=== PATIENT | female | born 1935 | race Caucasian/White ===

== ENCOUNTER 2016-08-11 10:45 | Outpatient (CLI) ==
--- NOTE | 2016-08-11 11:42 | DI ---
EXAM: Right foot three views HISTORY: Right foot pain COMPARISON: None FINDINGS: No fracture or dislocation. Mild scattered osteoarthritis of the interphalangeal joints. Small plantar calcaneal spur. No focal soft tissue abnormality. IMPERSSION: 1. No fracture or dislocation. 2. Mild osteoarthritis. 3. Small plantar calcaneal spur.
== END 2016-08-11 10:46 | disposition home or self-care (01) ==
LOC: RAD 10:45
PROVIDERS: ATTEND Internal Medicine
DX: M79.671 Pain in right foot (principal)

== ENCOUNTER 2017-02-11 13:36 | Emergency (ER) ==
[2017-02-11 13:41] VITALS: BP 135/70; TEMP 100.1; BMI 22.3
--- NOTE | 2017-02-11 14:21 | ED.PDOC ---
General ED Provider: Dr. YOLA BALTAZAR JR Chief Complaint: Knee Pain/Injury Stated Complaint: carrying monday off balance twisted left knee, still having pain one week [End]100.1 76 20 96 135/70 510 Time Seen by Physician: 14:19 Mode of Arrival: Walk-In Information Source: Patient Exam Limitations: No limitations Primary Care Provider: HI MILNER Nursing and Triage Documentation Reviewed and Agree: No Review of Systems - Review Of Systems Constitutional: Reports: No symptoms Eyes: Reports: No symptoms Ears, Nose, Mouth, Throat: Reports: No symptoms Respiratory: Reports: No symptoms Cardiac: Reports: No symptoms GI: Reports: No symptoms : Reports: No symptoms Musculoskeletal: Reports: Joint pain (left knee pain lateral side with tenderness painon weight bearing) Skin: Reports: No symptoms Neurological: Reports: No symptoms Endocrine: Reports: No symptoms Hematologic/Lymphatic: Reports: No symptoms All Other Systems: Other Past Medical History - Past Medical History Endocrine: Reports: Hypothyroid Cardiovascular: Reports: None Respiratory: Reports: None Hematological: Reports: None Gastrointestinal: Reports: PUD (ulcer in past), Other (miealax) Genitourinary: Reports: None Neuro/Psych: Reports: Other (xanax) Musculoskeletal: Reports: Arthritis Cancer: Reports: None Last Menstrual Period: none - Surgical History General Surgical History: Reports: Orthopedic (shoulder) - Family History Family History: Reports: Unknown - Social History Smoking Status: Never smoker Hx Substance Use: No Alcohol Screening: None Physical Exam - Physical Exam Appearance: Well-appearing, Thin Pain Distress: Moderate Musculoskeletal: Normal strength, ROM intact, No edema, No calf tenderness ( slight tenderness lower extremity veins left >right no calf tenderness no edema) Skin: Warm, Dry, Normal color Neurological: Sensation intact, Motor intact, Reflexes intact, Cranial nerves intact, Alert, Oriented Psychiatric: Affect appropriate, Mood appropriate Re-Evaluation - Re-Evaluation Time of Re-Evaluation: 14:32 Status: Unchanged (patient states she has had calf pain is concerned about a blood clot note no tenderness no edema requests testing) Critical Care Note - Critical Care Note Total Time (mins): 0 Course - Course Orders, Labs, Meds: Lab Review 02/11/17 14:45 D-Dimer (Manual) 441.24 Orders Category Date Time Status WIL [ED WIL WRAP] .ONCE EMERGENCY 02/11/17 14:24 Active D-DIMER Stat LAB 02/11/17 14:45 Completed KNEE, LEFT 4 VIEWS Stat RADS 02/11/17 14:03 Completed Vital Signs: Temp Pulse Resp BP Pulse Ox 02/11/17 13:36 100.1 F H 76 20 135/70 96 Departure - Departure Time of Disposition: 14:24 Disposition: HOME SELF-CARE Discharge Problem: Lateral collateral ligament sprain of knee Qualifiers: Encounter type: initial encounter Laterality: left Qualifier Code: (S83.422A) Sprain of lateral collateral ligament of left knee, initial encounter Instructions: Knee Sprain (ED) Condition: Good Pt referred to PMD for follow-up: Yes Additional Instructions: walk short distances for three days wil wrap for comfort for two to three hours once or twice a day [place] for liu not controlled by tylenol return if worse recheck PMD this week blood test is negative for clots Prescriptions: Hydrocodone Bit/Acetaminophen [[place] 5-325] 1 - 2 tab PO Q6HR PRN #12 tablet PRN Reason: pain Allergies/Adverse Reactions: Allergies moxifloxacin [From Avelox] Adverse Reaction (Verified 02/11/17 13:40) Home Medications: Ambulatory Orders Alprazolam [Xanax] 0.5 mg PO DAILY 02/11/17 Hydrocodone Bit/Acetaminophen [[place] 5-325] 1 - 2 tab PO Q6HR PRN #12 tablet 03/23 Levothyroxine Sodium [Synthroid] 75 mcg PO QDAC 02/11/17 Polyethylene Glycol 3350 [Miralax] 17 gm PO DAILY 02/11/17
--- NOTE | 2017-02-11 14:22 | DI ---
EXAM: Four views of the left knee. History: Left knee pain and trauma. Findings: No acute fracture or dislocation. No abnormal calcifications or radiopaque foreign eusebio s. Joint spaces are preserved. Impression: No acute osseous abnormality.
== END 2017-02-11 15:41 | disposition home or self-care (01) ==
LOC: ED 13:36
DX: S83.422A Sprain of lateral collateral ligament of left knee, initial encounter (principal); Z79.899 Other long term (current) drug therapy
CPT/HCPCS: 36415; 85379; 99282

== ENCOUNTER 2017-02-15 14:07 | Outpatient (CLI) ==
--- NOTE | 2017-02-15 14:50 | US ---
Exam: Anna-scale and color Doppler ultrasonographic evaluation of the right and left lower extremit y venous structures. Comparison: None available. Reason for exam: Pain. FINDINGS: There is spontaneous flow with adequate compression and respiratory augmentation seen in both the left and right common femoral, greater saphenous, profunda, superficial femoral, popliteal, peroneal, posterior tibial, and anterior tibial veins. Impression: No ultrasonographic evidence of deep venous thrombus is seen in either the right or left lower extre mity.
== END 2017-02-15 14:08 | disposition home or self-care (01) ==
LOC: RAD 14:07
PROVIDERS: ATTEND Internal Medicine
DX: M79.605 Pain in left leg (principal); M79.604 Pain in right leg; W19.XXXA Unspecified fall, initial encounter

== ENCOUNTER 2018-06-12 07:52 | Outpatient (CLI) ==
--- NOTE | 2018-06-12 09:03 | DI ---
EXAM: Two views of the chest. History: Chest pain and right-sided rib pain. Comparison: Chest radiograph 07/28/2014 Findings: Heart size is normal. No focal consolidation. No appreciable pleural fluid and no pneumo thorax. Atherosclerotic vascular calcifications. Calcified granulomas again seen within the thorax. No acute osseous abnormalities. Impression: No acute cardiopulmonary process. Old granulomatous disease. No change compared to the prior study
--- NOTE | 2018-06-12 09:04 | DI ---
EXAM: Four views of the right ribs. History: Right rib trauma. Comparison: Chest radiograph 06/12/2018 Findings: Atherosclerotic vascular calcifications. Right lung is free of consolidation. Calcified granulomas seen within the thorax. No right pleural effusion and no right-sided pneumothorax. No acu te displaced right-sided rib fractures. Impression: No acute findings
--- NOTE | 2018-06-12 09:15 | CT ---
EXAM: CT of the abdomen with contrast History: Right-sided abdominal pain and trauma. Technique: Multiplanar CT images through the abdomen were obtained following administration of IV co ntrast Findings: Subsegmental atelectasis seen within the lower lungs. Calcified granuloma within the ling man. No acute osseous abnormalities. No discrete gallstones identified by CT. Calcified granulomas within the spleen. No focal liver les ions. Pancreas is unremarkable. Adrenal glands are within normal limits. No renal masses. No hydr onephrosis. No perinephric stranding. No dilated loops of bowel. Scattered colonic stool. The rafal endix is not visualized. There are no secondary signs of appendicitis. No free air and no ascites. Tiny fat containing umbilical hernia. No pathologically enlarged lymph nodes. Impression: No acute intra-abdominal process.
== END 2018-06-12 07:53 | disposition home or self-care (01) ==
LOC: RAD 07:52
PROVIDERS: ATTEND Internal Medicine
DX: R07.89 Other chest pain (principal); R10.9 Unspecified abdominal pain; W19.XXXA Unspecified fall, initial encounter
CPT/HCPCS: 36415; 82565

== ENCOUNTER 2018-09-19 11:11 | Inpatient (IN) ==
[2018-09-19] MEDS ORDERED: ATROPINE SULFATE PFS IVP PRN (11:40)
[2018-09-19] MEDS ORDERED: TYLENOL PO PRN (11:40)
[2018-09-19] MEDS ORDERED: NITROSTAT SL PRN (11:40)
[2018-09-19] MEDS ORDERED: VISTARIL INJ IM PRN (11:40)
[2018-09-19] MEDS ORDERED: LANOXIN PO STA (11:46)
[2018-09-19] MEDS ORDERED: LOVENOX SUBCUT STA (11:47)
[2018-09-19 11:52] VITALS: BMI 24.2
[2018-09-19] MEDS ORDERED: CARDIZEM PO SCH ×2 (12:00→13:00)
[2018-09-19] MEDS ORDERED: CARDIZEM ONE (13:33)
[2018-09-19] MEDS: CORDARONE PO SCH (13:37)
--- NOTE | 2018-09-19 13:38 | DI ---
EXAM: CHEST FRONTAL VIEW HISTORY: Shortness of breath. COMPARISON: 06/22/2018 FINDINGS: Heart size remains within normal limits. There is at least mild atherosclerotic disease. There are scattered calcifications suggesting old granulomatous disease. No acute infiltrates are s een. No vascular congestion. There is no consolidation, visible pleural fluid or pneumothorax. Bon es reveal no acute fracture. IMPRESSION: No acute cardiopulmonary process.
[2018-09-20] MEDS: CORDARONE PO SCH ×3 (00:08→21:23)
[2018-09-20] MEDS: CARDIZEM PO SCH ×2 (00:08→09:00)
[2018-09-20] MEDS: SYNTHROID PO SCH (05:58)
[2018-09-20] MEDS: MILK OF MAGNESIA PO PRN (09:00)
[2018-09-20] MEDS: ASPIRIN EC PO SCH (09:00)
[2018-09-20] MEDS: MIRALAX PO SCH (09:01)
[2018-09-20] MEDS: LOVENOX SUBCUT SCH (09:02)
[2018-09-21 05:25] VITALS: BP 105/59; TEMP 97.6
[2018-09-21] MEDS: SYNTHROID PO SCH (05:58)
[2018-09-21] MEDS: CORDARONE PO SCH (08:37)
[2018-09-21] MEDS: ASPIRIN EC PO SCH (08:37)
[2018-09-21] MEDS: MIRALAX PO SCH (08:38)
[2018-09-21] MEDS: LOVENOX SUBCUT SCH (08:38)
--- NOTE | 2018-09-21 08:41 | PCM.PROG ---
Attending Provider: ATTENDING PROVIDER: Dr. HI MILNER DATE OF SERVICE: 09/21/18 SUBJECTIVE: This 83 year old WHITE/ F was hospitalized 09/19/18. The patient was hospitalized with near syncope type of symptoms and atrial fibrillation with rapid ventricular response. After a couple of hours after hospitalization the patient converted into sinus rhythm and stayed in sinus rhythm ever since. She has been on Amiodarone and baby Aspirin along with Xanax as needed. REVIEW OF SYSTEMS: CONSTITUTIONAL: No night sweats. No fatigue, malaise, lethargy. No fever or chills. HEENT: Eyes: No visual changes. No eye pain. No eye discharge. ENT: No runny nose. No epistaxis. No sinus pain. No odynophagia. No congestion. RESPIRATORY: No cough, no congestion. No hemoptysis. No shortness of breath. CARDIOVASCULAR: No angina symptoms. No CHF symptoms. No atypical chest pain for CAD. No palpitations. No orthopnea.. GASTROINTESTINAL: No abdominal pain. No nausea or vomiting. No diarrhea or constipation. No hematemesis. No hematochezia. GENITOURINARY: No urgency. No frequency. No dysuria. No hematuria. No obstructive symptoms. No discharge. No pain. No significant abnormal bleeding. MUSCULOSKELETAL: No musculoskeletal pain; no joint swelling. NEUROLOGICAL: Awake, alert, oriented to time, place and person. No headache. No neck pain. No syncope. No seizures. No dizziness. PSYCHIATRIC: Not anxious. No depression. No suicidal thoughts. No homicidal thoughts. SKIN: No rash. No lesions. No wounds. ENDOCRINE: No unexplained weight loss. No weight gain. HEMATOLOGIC/LYMPHATIC: No anemia. No purpura. No petechiae. No prolonged or excessive bleeding. No palpable lymph nodes. PHYSICAL EXAMINATION: GENERAL: The patient is awake, alert and oriented, lying in bed in no distress. VITAL SIGNS: Temperature 97.6 F, Pulse 58, Respiratory Rate 16, BP 105/59, Pulse Ox 96% HEENT: Head normocephalic, atraumatic. Eyes: Extraocular muscles are intact. Pupils are equal, round and reactive to light and accommodation. Ears: No lesions. Nose appeared normal. Throat: No exudate or erythema. NECK: Supple. No JVD, no carotid bruit. No lymphadenopathy or thyromegaly. LUNGS: Clear to auscultation. Percussion note normal. Chest symmetrical. HEART: S1, S2, no S3. No murmurs. No cyanosis or clubbing. No ascites. Pulses: Dorsalis pedis and posterior tibial pulses +1 to +2 both sides. ABDOMEN: Soft. Non-tender. Bowel sounds active. No CVA tenderness. No mass felt. EXTREMITIES: No edema. Full range of motion of all extremities, equal. NEUROLOGIC: No focal deficit. Cranial nerves II through XII are grossly intact. No headache, no double vision or headache. SKIN: Warm and dry. Intact. Turgor-normal. LYMPHATIC: No palpable lymph nodes/no lymphedema. MUSCULOSKELETAL: Normal joints with no swelling. Muscle tone is normal. LAB REVIEW: 09/21/18 05:05 09/21/18 05:05 09/21/18 05:05: Sodium 140.3, Potassium 4.25, Chloride 106.4, Carbon Dioxide 26.8, Anion Gap 11.35, BUN 17.1 H, Creatinine 0.72, Estimated GFR (MDRD) 77.00, BUN/Creatinine Ratio 23.75, Glucose 93.9, Calcium 8.74, Total Bilirubin 0.68, AST 16.1, ALT 13.5, Alkaline Phosphatase 50.1 L, Total Protein 6.49, Albumin 3.52, Globulin 2.97, Albumin/Globulin Ratio 1.18 09/21/18 05:05: WBC 5.62, RBC 4.02 L, Hgb 12.7, Hct 38.8, MCV 96.5, MCH 31.6 H, MCHC 32.7, RDW Coeff of Jonel 13.0, Plt Count 245, Immature Gran % (Auto) 0.2, Neut % (Auto) 54.1, Lymph % (Auto) 30.2, [place] % (Auto) 12.3 H, Eos % (Auto) 2.8 , Baso % (Auto) 0.4, Immature Gran # (Auto) 0.0, Neut # (Auto) 3.0, Lymph # ( Auto) 1.7, [place] # (Auto) 0.7, Eos # (Auto) 0.2, Baso # (Auto) 0.0 ASSESSMENT: Please see below. 1. Paroxysmal atrial fibrillation, resolved on admission. The patient is already on Holter Monitor. Depending on the results we may start the patient on Eliquis. PLAN: 1. Non valvular atrial fibrillation paroxysmal with left atrial size 3.9cm. 2. Cardiac status is stable. 3. CHADS II Vasc score is 2, the score is 2 because of her age, no risk factors for stroke. 4. She is to be seen on Monday or Monday for followup. Plan and coordination of the patient's care discussed in the presence of Aboriginal Liaison Officer and nurse. CONDITION: Stable. SCRIBED BY: Michelet MENDEZ scribed while in presence of service performed by Dr. HI MILNER on 09/21/18 ([id number])
[2018-09-21] MEDS: MILK OF MAGNESIA PO PRN (08:43)
--- NOTE | 2018-09-21 08:43 | DS ---
DATE OF SERVICE: 09/21/18 FINAL DIAGNOSIS: 1. Paroxysmal Atrial fibrillation with RVR 2. Near Syncope 3. COPD 4. Generalized anxiety disorder 5. Restless leg syndrome 6. Hypothyroidism 7. Hyperglycemia 8. Neuropathy 9. Dyslipidemia LAST VITALS: Temperature 97.6, pulse 58, respiratory rate 16, blood pressure 105/59 and pulse ox 96%. DISCHARGE INSTRUCTIONS: Discharge home. Continue medications as listed on Nursing discharge information sheet. An appointment is scheduled with Dr. Tsang/Fernanda Singh APRN on September 26 at 11:45. MEDICATIONS AT DISCHARGE: Cordarone 100mg PO Q 12 hours DIO Aspirin 81mg PO daily Synthroid 75mcg PO QDAC Milk of Magnesia 30ml PO daily PRN Miralax 17 gram PO daily Xanax 0.5mg PO daily PRN ALLERGIES: Moxifloxacin NEW PRESCRIPTIONS: Xanax 0.5mg PO daily PRN (refill RX) Amiodarone 100mg PO twice a day Baby Aspirin 81mg PO daily (over the counter) DIET INSTRUCTIONS: Regular as tolerated ACTIVITY: Resume as tolerated. SMOKING: Not applicable DISEASE SPECIFIC EDUCATION: Atrial fibrillation, Paroxysmal Prescription HOSPITAL COURSE: 83 year old white female hospitalized through the office with near syncope episode and shortness of breath. She had atrial fibrillation that was documented in the office with a ventricular rate of 120-130. The patient converted to sinus rhythm within a couple of hours of admission. Echo showed normal contractility, cavity size is normal,mitral, tricuspid and aortic valves appear to be normal. No mitral valve prolapse. WATSON 2 VASC score was 2 coming from her age of 83. She doesn't have diabetes mellitus, non smoker, normal blood pressure and no history of CVA. The patient will be followed as an outpatient. Any indication of atrial fibrillation we will consider Novel blood thinners like Eliquis. After discussion with the patient it was decided not to start on the blood thinners because the complications outweigh the benefit because the atrial fibrillation seems to be infrequent and paroxysmal. TIME SPENT: More than 60 minutes. [facility]
--- NOTE | 2018-09-21 08:44 | PN ---
09/19/18: Level 5 09/20/18: Intermediate 09/21/18: D as in discharge MTDD
--- NOTE | 2018-09-21 10:00 | CM.DICTOOL ---
ADMISSION: 09/19/18 11:11 DISCHARGE: 2018 DATE OF SERVICE: 09/21/18 FINAL DIAGNOSIS PAROXYSMAL ATRIAL FIB WITH RVR NEAR SYNCOPE COPD GENERALIZED ANXIETY DISORDER RESTLESS LEG SYNDROME HYPOTHYROIDISM HYPERGLYCEMIA NEUROPATHY DYSLIPIDEMIA CATARACT REMOVAL, LAST VITALS Temp Pulse Resp BP Pulse Ox 97.6 F 58 L 16 105/59 L 96 09/21/18 05:24 09/21/18 05:24 09/21/18 05:24 09/21/18 05:24 09/21/18 05:24 TAKE THESE MEDICATIONS AT HOME Amiodarone HCl (Cordarone) 100 mg PO Q12HR [facility] Last Admin: 09/21/18 08:37 Dose: 100 mg Aspirin (Aspirin Ec) 81 mg PO DAILYWM [facility] Last Admin: 09/21/18 08:37 Dose: 81 mg Levothyroxine Sodium (Synthroid) 75 mcg PO QDAC [facility] Last Admin: 09/21/18 05:58 Dose: 75 mcg Magnesium Hydroxide (Milk Of Magnesia) 30 ml PO DAILY PRN PRN Reason: Constipation Last Admin: 09/21/18 08:43 Dose: 30 ml Polyethylene Glycol (Miralax) 17 gm PO DAILY [facility] Last Admin: 09/21/18 08:38 Dose: 17 gm Alpraxolam (Xanac) 0.5 mg PO DAILY PRN ALLERGIES moxifloxacin [From Avelox] Adverse Reaction (Verified 02/11/17 13:40) DISCONTINUED MEDICATIONS NONE NEW PRESCRIPTIONS: XANAX 0.5 MG DAILY PRN (REFILL RX) AMIODARONE 100 MG BID BABY ASA 81 MG DAILY (OVER THE COUNTER) SMOKING: NOT APPLICABLE DISEASE SPECIFIC EDUCATION: ATRIAL FIBRILLATION, PAROXYSMAL PRESCRIPTION LAB REVIEW: 09/21/18 05:05 09/21/18 05:05 09/21/18 05:05: Sodium 140.3, Potassium 4.25, Chloride 106.4, Carbon Dioxide 26.8, Anion Gap 11.35, BUN 17.1 H, Creatinine 0.72, Estimated GFR (MDRD) 77.00, BUN/Creatinine Ratio 23.75, Glucose 93.9, Calcium 8.74, Total Bilirubin 0.68, AST 16.1, ALT 13.5, Alkaline Phosphatase 50.1 L, Total Protein 6.49, Albumin 3.52, Globulin 2.97, Albumin/Globulin Ratio 1.18 09/21/18 05:05: WBC 5.62, RBC 4.02 L, Hgb 12.7, Hct 38.8, MCV 96.5, MCH 31.6 H, MCHC 32.7, RDW Coeff of Jonel 13.0, Plt Count 245, Immature Gran % (Auto) 0.2, Neut % (Auto) 54.1, Lymph % (Auto) 30.2, [place] % (Auto) 12.3 H, Eos % (Auto) 2.8 , Baso % (Auto) 0.4, Immature Gran # (Auto) 0.0, Neut # (Auto) 3.0, Lymph # ( Auto) 1.7, [place] # (Auto) 0.7, Eos # (Auto) 0.2, Baso # (Auto) 0.0 PLAN: DISCHARGE HOME DIET: REGULAR TOLERATED ACTIVITY: RESUME TOLERATED CONTINUE MEDICATIONS LISTED ON NURSING DISCHARGE INFORMATION SHEET PRESCRIPTIONS CALLED TO [facility] IN [place], [place] AT REQUEST OF PATIENT AN APPOINTMENT IS SCHEDULED WITH DR. MILNER/SILVIANO HASSAN APRN ON AT 11:45 AM CODE STATUS: FULL CODE MS. NOYOLA IS ALERT AND ORIENTED X 3. SHE IS INDEPENDENT WITH ALL ACTIVITIES OF DAILY LIVING. SHE IS AMBULATORY IN THE ROOM WITHOUT STAFF ASSISTANCE OR USE OF ASSISTIVE DEVICE. APPETITE IS GOOD WITH INTAKES OF 10-100%. MS. NOYOLA IS CONTINENT OF BOWEL AND BLADDER. MS. NOYOLA LIVES ALONE AND DOES NOT USE ANY TYPE OF DURABLE MEDICAL EQUIPMENT. MS. NOYOLA IS AWARE OF DISCHARGE PLANS AND NEW MEDICATION. SHE IS AGREEABLE. SKIN TURGOR IS GOOD, SKIN IS INTACT AND FREE OF OPEN WOUNDS, IRRITATIONS. HI MILNER MD
--- NOTE | 2018-09-21 10:03 | US ---
EXAM: Bilateral carotid artery Doppler History: Syncope. Technique: Multiple sonographic images through the bilateral internal carotid arteries were obtained . Color duplex Doppler was used to interrogate vascular flow. Findings: The right ICA peak systolic velocity is within normal limits measuring 111 cm/sec. The right ICA/cca PSV ratio is normal at 1.2. The right vertebral artery is patent and demonstrates antegrade flow. Anna scale images demonstrate mild plaque buildup within the right internal carotid artery. The left ICA peak systolic velocities within normal limits measuring 88 cm/sec. The left ICA/cca PSV ratio is normal at 1.1. The left vertebral artery is patent and demonstrates antegrade flow. Anna scale images demonstrate mild plaque buildup within the left internal carotid artery. Impression: No significant hemodynamic stenosis of the bilateral internal carotid arteries
--- NOTE | 2018-09-24 09:30 | ECHO2D ---
Date of Exam: 09/20/18 Ordering Physician: DR. HI MILNER Room #: 122 Reason for Echo: SOA/ ATRIAL FIBRILLATION PAROXYSMAL M-Mode Normal Adult Results LV Dimensions Normal Adult Results AoV Opening excursions >1.6 >1.6 LVEDD-base- 3.5-5.8 4.0 Ao root dimensions 2.0-3.7 2.8 LVESD-base- 3.1-4.6 L. Atrium dimensions 1.9-3.8 3.9 Post. Wall thickness 0.8-1.1 1.0 IV septum (thickness) 0.7-1.2 1.0 Post. Wall excursion 0.72-1.3 NORMAL Septal motion NORMAL Systolic motion R. Ventricular cavity 1.5-2.0 NORMAL LVEF 60% 60% Paradoxical septal wall motion NORMAL 2-D : 2-D M Mode Echocardiogram was performed using apical four chamber and left parasternal long and short axis views. Mitral, tricuspid and aortic valves appear to be normal. Contractility of the left ventricle seems to be normal, so is the cavity size. Left atrial cavity size and aortic root appear to be normal. There is no pericardial effusion. There is no thrombus noted in the left ventricular or left aortic cavity. No mitral valve prolapse noted. M-MODE: MV: NORMAL AV: NORMAL TV: NORMAL PV: CHAMBER SIZE: NORMAL WALL MOTION: NORMAL PERICARDIUM: NORMAL INTERPRETATION: 1. NORMAL 2 "D" "M" MODE ECHO MTDD
--- NOTE | 2018-09-24 10:43 | HOLTER ---
PATIENT INFORMATION AND COMMENTS Attending Physician: DR. HI MILNER Indications: ATRIAL FIBRILLATION WITH RVR, NEAR SYNCOPE __ Patient Medications: TYLENOL, CORDARONE, ASA, ATROPINE, CARDIZEM, LOVENOX, VISTARIL, SYNTHROID, NITROSTAT, MIRALAX __ Pre-procedure Summary: Protocol: Standard Heart Rate Started: 09/20/18 0957 Minimum: 51 BPM Weight: 132 LBS Ended: 09/21/18 0900 Maximum: 108 BPM Height: 62" Duration: 24 HOURS Average: 64 BPM _ INTERPRETATIONS/OBSERVATIONS: 1. BASIC RHYTHM: SINUS, RATE 50 BPM TO 100 BPM, AVERAGE 65 BPM 2. RARE PAC'S AND PVC'S 3. NO ST-T WAVE CHANGES FROM BASELINE 4. ACTIVITY LOG: NOT MAINTAINED MTDD
--- NOTE | 2018-09-25 07:41 | HP ---
DATE OF SERVICE: 09/19/18 REASON FOR HOSPITALIZATION/HISTORY OF PRESENT ILLNESS: Went to ER on Monday- dizzy felt like she is was going to pass out. Ranger bad. Blood pressure 200/110. Bowel sounds were ok. EKG today here showed atrial fibrillation with rapid ventricular response. No symptoms of CHF/CAD. PAST MEDICAL HISTORY: Restless leg syndrome COPD DAVID Osteoporosis Osteoarthritis Hypothyroidism Hyperglycemia Neuropathy Dyslipidemia PAST SURGICAL HISTORY: Right shoulder surgery REVIEW OF SYSTEMS: CONSTITUTIONAL: No fever, Fatigue. HEENT: No sinus drainage, no sore throat. RESPIRATORY: No cough, no congestion. CARDIOVASCULAR: No atypical chest pain for coronary artery disease. No angina , CHF symptoms. Palpitations.Shortness of breath. GASTROINTESTINAL: No melena or abdominal pain. No GERD. GENITOURINARY: No hematuria, no prostatism, no polyuria. BAKER: No blackout, Dizziness, no headache, no double vision. MUSCULOSKELETAL: Osteoarthritis pain, no joint swelling. ENDOCRINE: No weight loss, no weight gain. SKIN: Not dry, no rash. PSYCHIATRIC: Anxious, no depression, no suicidal thoughts, no homicidal thoughts. SOCIAL HISTORY: Marital Status: . Alcohol Usage: Yes. Tobacco Usage: No. FAMILY HISTORY: Father age 64, blood clot Mother age 91,congestive heart failure Brothers 2 Sisters 3 MEDICATIONS: Requip 1mg PO one time per day Miralax 17gram with 8oz water, juice, soda, coffee or tea by oral route once daily Synthroid 75mcg PO one time daily ALLERGIES: Moxifloxacin PHYSICAL EXAMINATION: V/S: Pulse 68, blood pressure 126/74, temperature 99.0, oxygen saturation 98%. Height 5'2, 133.6 pounds and 24.4 BMI. GENERAL APPEARANCE: Oriented times three. HEENT: Normal. NECK: No JVP, no bruits. RESPIRATORY: Lungs are clear. CARDIOVASCULAR: S1, S2, no S3, no murmurs. No cyanosis, clubbing. No ascites. Irregular rate 115 beats per minute. GI/ABDOMEN: No tenderness. Bowel sounds are active. EXTREMITIES: edema, pulses +1, equal. BAKER: Deep tendon reflexes, sensory, motor and gait all normal. RECTAL: Refused colonoscopy/PELVIC: Refused Mammogram. Advised yearly. ASSESSMENT: 1. Near syncopal episode 2. Palpitations 3. Atrial fibrillation with RVR 4. Restless leg syndrome 5. COPD 6. DAVID 7. Osteoporosis 8. Osteoarthritis 9. Hypothyroidism 10.Hyperglycemia 11.Neuropathy 12.Dyslipidemia PLAN: 1. Routine telemetry orders 2. T4/TSH 3. Educate atrial fibrillation 4. Eliquis 5. Cardizem 60mg PO twice a day and one now 6. Echo 2DM Mode 7. Diet regular 8. BNP 9. Caroid scan 10.Lanoxin 0.25mg PO now 11.Lovenox 60mg SUBCUT now and QAM TIME SPENT: More than 70 minutes. ANGELAD
== END 2018-09-21 11:03 | disposition home or self-care (01) | DRG 312 ==
LOC: MEDSURG B 11:11
PROVIDERS: ADMIT Internal Medicine; ATTEND Internal Medicine
DX: R55 Syncope and collapse (principal); J44.9 Chronic obstructive pulmonary disease, unspecified; F41.1 Generalized anxiety disorder; G25.81 Restless legs syndrome; E03.9 Hypothyroidism, unspecified; R73.9 Hyperglycemia, unspecified; G62.9 Polyneuropathy, unspecified; E78.5 Hyperlipidemia, unspecified; M19.90 Unspecified osteoarthritis, unspecified site; M81.0 Age-related osteoporosis without current pathological fracture
CPT/HCPCS: 36415; 80053; 82550; 83880; 84436; 84443; 84484; 85025; 93005; 93010; 93227

== ENCOUNTER 2020-11-17 08:24 | Inpatient (IN) ==
--- NOTE | 2020-11-17 09:16 | ED.PDOC ---
General ED Provider: Dr. RENITA DYSON Chief Complaint: Palpitations Stated Complaint: Chest palpitations. Referred to ER by Dr Milner. States started feeling like her heart was beating rapidly last evening with skipped beats. Denies Dyspnea or chest pain. Past hx arrhythmia Time Seen by Provider: 11/17/20 09:16 Mode of Arrival: Walk-In Information Source: Patient Exam Limitations: No limitations Primary Care Provider: HI MILNER Referred to ED by: PCP Nursing and Triage Documentation Reviewed and Agree: Yes Does patient meet sepsis criteria?: No System Inflammatory Response Syndrome: Not Applicable Sepsis Protocol: For patient's 13 years and over: Temp is 96.8 and below OR 101 and greater Pulse >90 BPM Resp >20/minute Acutely Altered Mental Status Are patient's symptoms suggestive of a new infection, such as: -Pneumonia -Skin, Soft Tissue -Endocarditis -UTI -Bone, Joint Infection -Implantable Device -Acute Abdominal Infection -Wound Infection -Meningitis -Blood Stream Catheter Infection -Unknown Cardiovascular Complaint Exam Palpitations Complaint/Exam Onset/Duration: Last PM Symptoms Are: Still present (But improved) Timing: Intermittent Initial Severity: Moderate Current Severity: Mild Character: Reports Irregular and Skipped beats Aggravating: Reports Exertion and Caffeine Alleviating: Reports Rest and Position Associated Signs and Symptoms: Reports Lightheadedness, Dizziness, Chest pain, Shortness of breath and Nausea; Denies Diaphoresis and Vomiting Related History: Similar episode Cardiac Risk Factors: Reports Hypertension Pulmonary Embolism Risk Factors: Reports None Atrial Fibrillation Risk Factors: Reports Hypertension and Hypothyroidism Thyroid Exam: Normal Differential Diagnoses: Hypokalemia Review of Systems Review Of Systems Constitutional: Reports Weakness and Loss of appetite Eyes: Reports No symptoms Ears, Nose, Mouth, Throat: Reports No symptoms Respiratory: Reports No symptoms Cardiac: Reports Irregular heart rate and Palpitations GI: Reports No symptoms : Reports No symptoms Musculoskeletal: Reports No symptoms Skin: Reports No symptoms Neurological: Reports No symptoms Endocrine: Reports No symptoms Hematologic/Lymphatic: Reports No symptoms All Other Systems: Reviewed and Negative PFSH Female Reproductive History Menstrual Hx Hysterectomy: No Hx Tubal Ligation: No Physical Exam Physical Exam Appearance: Reports Well-appearing and Thin Ill-appearing: None Pain Distress: None Eyes: Reports PAMELA, EOMI and Conjunctiva clear ENT: Reports Ears normal, Nose normal and Oropharynx normal Neck: Supple Respiratory: Reports Airway patent, Breath sounds clear and Breath sounds equal Cardiovascular: Reports RRR, Pulses normal, No rub and No murmur GI/: Reports Soft and Nontender Skin: Reports Warm Neurological: Reports Sensation intact, Motor intact, Cranial nerves intact and Alert Psychiatric: Reports Affect appropriate, Mood appropriate and Anxious Interpretation EKG Interpretation Time of EKG #1: 08:46 Rate: Normal Rhythm: Sinus ST Segment: Normal Interpretation: NSR Critical Care Note Critical Care Note Total Critical Care Time (mins): 30 Course Course Hematology/Chemistry: 11/17/20 10:25 11/17/20 10:25 Orders, Labs, Meds: Lab Review 11/17/20 11/17/20 10:25 10:25 WBC 7.26 RBC 4.18 L Hgb 13.4 Hct 40.0 MCV 95.7 MCH 32.1 H MCHC 33.5 RDW Coeff of Jonel 12.9 Plt Count 282 Immature Gran % (Auto) 0.3 Neut % (Auto) 78.8 H Lymph % (Auto) 14.2 Yancey % (Auto) 6.5 Eos % (Auto) 0.1 Baso % (Auto) 0.1 Neut # (Auto) 5.7 Lymph # (Auto) 1.0 Yancey # (Auto) 0.5 Eos # (Auto) 0.0 Baso # (Auto) 0.0 Immature Gran # (Auto) 0.0 Sodium 139.3 Potassium 4.00 Chloride 107.7 H Carbon Dioxide 25.2 Anion Gap 10.40 BUN 15.4 Creatinine 0.64 Estimated GFR (MDRD) 88.00 BUN/Creatinine Ratio 24.06 Glucose 85.4 Calcium 8.95 Total Bilirubin 1.09 AST 19.2 ALT 12.5 Alkaline Phosphatase 61.7 Troponin I < 0.012 Total Protein 7.05 Albumin 3.89 Globulin 3.16 Albumin/Globulin Ratio 1.23 TSH 0.119 L Orders Category Date Time Status ADMIT OBSERVATION [PLACE PATIENT OBSERVATION] .TO ADMISSION 11/17/20 11:42 Ordered MEDSURG (MONITORED BED) EKG-(ED ONLY) Stat CARDIO 11/17/20 10:02 Completed TELEMETRY MONITORING TELE CARE 11/17/20 11:42 Ordered CBC W/ AUTO DIFF Stat LAB 11/17/20 10:25 Completed CMP [COMPREHENSIVE METABOLIC PANEL] Stat LAB 11/17/20 10:25 Completed THYROID STIMULATING HORMONE Stat LAB 11/17/20 10:25 Completed TROPONIN I Stat LAB 11/17/20 10:25 Completed UA [URINALYSIS C & S IF INDICATED] Stat LAB 11/17/20 10:03 Uncollected CHEST, 1V AP ONLY Stat RADS 11/17/20 10:03 Completed Vital Signs: Temp Pulse Resp BP Pulse Ox 11/17/20 08:25 97.1 F L 72 20 117/63 98 MARLY Risk Score MARLY Risk Score: Risk Score Odds of by 30D 0 0.1 (0.1-0.2) 1 0.3 (0.2-0.3) 2 0.4 (0.3-0.5) 3 0.7 (0.6-0.9) 4 1.2 (1.0-1.5) 5 2.2 (1.9-2.6) 6 3.0 (2.5-3.6) 7 4.8 (3.8-6.1) Discharge Plan Discharge Patient Disposition: PLACED OBSERVATION Discharge Problem: Intermittent palpitations Prescriptions: No Action polyethylene glycol 3350 [Miralax] 17 GM powder in packet 17 g PO DAILY RF: 0 levothyroxine [Synthroid] 75 MCG tablet 75 mcg PO QDAC RF: 0 magnesium hydroxide [Milk of Magnesia] 30 ML suspension 30 ml PO DAILY PRN (Reason: Constipation) RF: 0 amiodarone 100 MG tablet 100 mg PO BID Qty: 60 RF: 0 aspirin 81 MG tablet,delayed release (DR/EC) 81 mg PO DAILY Qty: 60 RF: 0 alprazolam 0.5 MG tablet 0.5 mg PO DAILY PRN (Reason: Anxiety) Qty: 30 RF: 0 ED Provider: RENITA DYSON Condition: Fair Physician Progress Note: []
[2020-11-17 10:31] LABS: BASOPHILS % (AUTO) 0.1 % (0.0-3.0); EOSINOPHILS % (AUTO) 0.1 % (0.0-7.0); HEMOGLOBIN 13.4 g/dl (12.0-16.0); IMMATURE GRANULOCYTE % (AUTO) 0.3 % (0.0-5.0); LYMPHOCYTES % (AUTO) 14.2 (10.0-50.0); MEAN CORPUSCULAR HEMOGLOBIN 32.1 pg (27.0-31.0); MEAN CORPUSCULAR HGB CONC 33.5 (31.8-35.4); MEAN CORPUSCULAR VOLUME 95.7 fl (81.0-99.0); MONOCYTES # (AUTO) 0.5 K/uL (0.4-2.0); MONOCYTES % (AUTO) 6.5 (0-10); NEUTROPHILS # (AUTO) 5.7 K/ul (2.0-6.9); NEUTROPHILS % (AUTO) 78.8 % (42.2-75.2); PLATELET COUNT 282 10^3/uL (140-440); RDW COEFFICIENT OF VARIATION 12.9 % (11.6-14.8); RED BLOOD COUNT 4.18 10^6/ul (4.20-5.40); WHITE BLOOD COUNT 7.26 K/ul (4.6-10.2)
[2020-11-17 10:43] LABS: ALANINE AMINOTRANSFERASE 12.5 U/L (0-35); ALBUMIN 3.89 g/dL (3.5-5.0); ALKALINE PHOSPHATASE 61.7 U/L (53-141); ASPARTATE AMINO TRANSFERASE 19.2 U/L (14-36); BILIRUBIN,TOTAL 1.09 mg/dL (0.2-1.3); BLOOD UREA NITROGEN 15.4 mg/dL (7-17); CALCIUM 8.95 mg/dL (8.4-10.2); CARBON DIOXIDE 25.2 mmol/L (22-30.0); CHLORIDE 107.7 mmol/L (98-107); CREATININE 0.64 mg/dL (0.60-1.30); GLUCOSE 85.4 mg/dL (74-106); SODIUM 139.3 mmol/L (134.5-145); TOTAL PROTEIN 7.05 g/dL (6.3-8.2)
--- NOTE | 2020-11-17 10:55 | DI ---
EXAM: Single frontal view of the chest HISTORY: Palpitations. COMPARISON: Chest x-ray 09/19/2018 and multiple priors FINDINGS: Cardiomediastinal silhouette is unremarkable with atherosclerotic disease. There is no pne umothorax or effusion. There is no consolidation, nodule or mass. There is a left calcified granulo ma. There is degenerative disease of the spine. IMPRESSION: No acute cardiopulmonary process
[2020-11-17 11:00] LABS: TROPONIN I < 0.012 ng/ml (0.0000-0.120)
[2020-11-17 11:14] LABS: THYROID STIMULATING HORMONE 0.119 uIU/L (0.465-4.68)
[2020-11-17 12:33] LABS: CREATINE KINASE 31.2 U/L (30-135)
[2020-11-17] MEDS ORDERED: MILK OF MAGNESIA PO PRN (12:37)
[2020-11-17 12:53] LABS: TROPONIN I < 0.012 ng/ml (0.0000-0.120)
[2020-11-17 13:37] LABS: BILIRUBIN,URINE 1+ (NEGATIVE); CLARITY,URINE Clear (CLEAR); COLOR,URINE Yellow (YELLOW); GLUCOSE, URINE (UA) Negative (NEGATIVE); KETONES,URINE 3+ (NEGATIVE); LEUKOCYTE ESTERASE ,URINE Negative (NEGATIVE); NITRITE,URINE Negative (NEGATIVE); PROTEIN,URINE Negative (NEGATIVE); URINE, BLOOD Negative (NEGATIVE); UROBILINOGEN,URINE 0.2 (0.2)
[2020-11-17 13:58] VITALS: BMI 22.5
[2020-11-17] MEDS: PROTONIX PO SCH ×2 (15:29→18:07)
[2020-11-17] MEDS: ASPIRIN EC PO SCH (15:29)
--- NOTE | 2020-11-17 17:01 | US ---
EXAM: Ultrasound bilateral carotid duplex HISTORY: Palpitations COMPARISON: Carotid Doppler 09/19/2018 TECHNIQUE: Sonographic and color Doppler evaluation of the carotids were performed. FINDINGS: The right carotid is patent and tortuous in appearance with scattered mild atherosclerotic plaque vis ualized. The right ICA peak systolic velocity measures 122 cm/sec which is normal. The ICA / CCA peak systolic velocity ratio is 1.3 and ICA end-diastolic velocity is 20 cm/sec. The left carotid is patent in appearance with mild scattered atherosclerotic plaque visualized. The left ICA peak systolic velocity measures 111 cm/sec which is normal. The left ICA / CCA peak systolic velocity ratio is 1.2 and ICA end-diastolic velocity is 10.8 cm/sec. Vertebral arteries demonstrate antegrade flow bilaterally. Color Doppler and wave spectral evaluation are unremarkable. IMPRESSION: Scattered atherosclerotic disease with velocities within normal limits. No color Doppler or ultrasou nd evidence of hemodynamically significant stenosis.
[2020-11-17] MEDS ORDERED: NITROSTAT SL PRN (18:33)
[2020-11-17] MEDS ORDERED: TYLENOL PO PRN (18:33)
[2020-11-17] MEDS ORDERED: ATROPINE SULFATE PFS IVP PRN (18:33)
[2020-11-17] MEDS: CORDARONE PO SCH (21:00)
[2020-11-17] MEDS: XANAX PO PRN (21:42)
[2020-11-18 02:14] LABS: BASOPHILS % (AUTO) 0.4 % (0.0-3.0); EOSINOPHILS # (AUTO) 0.2 K/ul (0.0-0.7); EOSINOPHILS % (AUTO) 2.5 % (0.0-7.0); HEMATOCRIT 34.6 % (37.0-47.0); HEMOGLOBIN 11.6 g/dl (12.0-16.0); IMMATURE GRANULOCYTE % (AUTO) 0.1 % (0.0-5.0); LYMPHOCYTES % (AUTO) 28.5 (10.0-50.0); MEAN CORPUSCULAR HEMOGLOBIN 31.8 pg (27.0-31.0); MEAN CORPUSCULAR HGB CONC 33.5 (31.8-35.4); MEAN CORPUSCULAR VOLUME 94.8 fl (81.0-99.0); MONOCYTES # (AUTO) 0.8 K/uL (0.4-2.0); MONOCYTES % (AUTO) 11.4 (0-10); NEUTROPHILS # (AUTO) 4.1 K/ul (2.0-6.9); NEUTROPHILS % (AUTO) 57.1 % (42.2-75.2); PLATELET COUNT 253 10^3/uL (140-440); RED BLOOD COUNT 3.65 10^6/ul (4.20-5.40); WHITE BLOOD COUNT 7.17 K/ul (4.6-10.2)
[2020-11-18 02:27] LABS: ALANINE AMINOTRANSFERASE 10.1 U/L (0-35); ALBUMIN 3.18 g/dL (3.5-5.0); ASPARTATE AMINO TRANSFERASE 18.4 U/L (14-36); BILIRUBIN,TOTAL 0.69 mg/dL (0.2-1.3); BLOOD UREA NITROGEN 17.5 mg/dL (7-17); CALCIUM 8.61 mg/dL (8.4-10.2); CARBON DIOXIDE 24.4 mmol/L (22-30.0); CHLORIDE 106.8 mmol/L (98-107); CREATINE KINASE 29.4 U/L (30-135); CREATININE 0.62 mg/dL (0.60-1.30); GLUCOSE 97.1 mg/dL (74-106); POTASSIUM 3.49 mmol/L (3.5-5.1); SODIUM 135.8 mmol/L (134.5-145); TOTAL PROTEIN 5.97 g/dL (6.3-8.2)
[2020-11-18 02:38] LABS: TROPONIN I < 0.012 ng/ml (0.0000-0.120)
[2020-11-18] MEDS: SYNTHROID PO SCH (05:40)
[2020-11-18] MEDS: PROTONIX PO SCH ×2 (05:40→17:29)
[2020-11-18] MEDS: CORDARONE PO SCH (08:23)
[2020-11-18] MEDS: ASPIRIN EC PO SCH (08:23)
[2020-11-18] MEDS: MIRALAX PO SCH (08:24)
[2020-11-18 09:37] LABS: BILIRUBIN,URINE Negative (NEGATIVE); CLARITY,URINE Clear (CLEAR); COLOR,URINE Yellow (YELLOW); GLUCOSE, URINE (UA) Negative (NEGATIVE); KETONES,URINE Negative (NEGATIVE); LEUKOCYTE ESTERASE ,URINE Negative (NEGATIVE); NITRITE,URINE Negative (NEGATIVE); PROTEIN,URINE Negative (NEGATIVE); URINE, BLOOD Negative (NEGATIVE); UROBILINOGEN,URINE 0.2 (0.2)
[2020-11-18] MEDS: K-DUR PO SCH ×2 (12:11→17:31)
[2020-11-19 05:32] VITALS: BP 120/63; TEMP 98.1
[2020-11-19] MEDS: SYNTHROID PO SCH (05:53)
[2020-11-19] MEDS: PROTONIX PO SCH (05:53)
[2020-11-19 05:54] LABS: BASOPHILS % (AUTO) 0.3 % (0.0-3.0); EOSINOPHILS # (AUTO) 0.1 K/ul (0.0-0.7); EOSINOPHILS % (AUTO) 1.8 % (0.0-7.0); HEMATOCRIT 39.3 % (37.0-47.0); IMMATURE GRANULOCYTE % (AUTO) 0.3 % (0.0-5.0); LYMPHOCYTES # (AUTO) 1.3 K/uL (0.60-3.4); LYMPHOCYTES % (AUTO) 18.9 (10.0-50.0); MEAN CORPUSCULAR HEMOGLOBIN 31.6 pg (27.0-31.0); MEAN CORPUSCULAR HGB CONC 33.1 (31.8-35.4); MEAN CORPUSCULAR VOLUME 95.4 fl (81.0-99.0); MONOCYTES # (AUTO) 0.6 K/uL (0.4-2.0); MONOCYTES % (AUTO) 8.9 (0-10); NEUTROPHILS % (AUTO) 69.8 % (42.2-75.2); PLATELET COUNT 274 10^3/uL (140-440); RDW COEFFICIENT OF VARIATION 12.9 % (11.6-14.8); RED BLOOD COUNT 4.12 10^6/ul (4.20-5.40); WHITE BLOOD COUNT 7.09 K/ul (4.6-10.2)
[2020-11-19 06:08] LABS: ALBUMIN 3.58 g/dL (3.5-5.0); ASPARTATE AMINO TRANSFERASE 16.6 U/L (14-36); BILIRUBIN,TOTAL 0.59 mg/dL (0.2-1.3); BLOOD UREA NITROGEN 14.8 mg/dL (7-17); CALCIUM 8.95 mg/dL (8.4-10.2); CARBON DIOXIDE 24.3 mmol/L (22-30.0); CHLORIDE 108.2 mmol/L (98-107); CREATININE 0.73 mg/dL (0.60-1.30); GLUCOSE 103.2 mg/dL (74-106); POTASSIUM 4.4 mmol/L (3.5-5.1); SODIUM 138.5 mmol/L (134.5-145); TOTAL PROTEIN 6.62 g/dL (6.3-8.2)
[2020-11-19] MEDS: XANAX PO PRN (08:55)
--- NOTE | 2020-11-19 08:55 | PCM.PROG ---
Attending Provider: ATTENDING PROVIDER: Dr. HI MILNER This patient is seen with Fernanda Singh, Nurse Practitioner. DATE OF SERVICE: 11/19/20 SUBJECTIVE: This 85 year old /WHITE F was hospitalized 11/17/20. The patient is resting comfortably. She states that she had fatigue when she got up and went to the bathroom. Telemetry is normal. She had Holter Monitor earlier in the year and showed rare PAC's and PVC's. TSH is slightly low. Will do T4 today. REVIEW OF SYSTEMS: CONSTITUTIONAL: No night sweats. No fatigue, malaise, lethargy. No fever or chills. Weakness. HEENT: Eyes: No visual changes. No eye pain. No eye discharge. ENT: No runny nose. No epistaxis. No sinus pain. No odynophagia. No congestion. RESPIRATORY: No cough, no congestion. No hemoptysis. No shortness of breath. CARDIOVASCULAR: No angina symptoms. No CHF symptoms. No atypical chest pain for CAD. No palpitations. No orthopnea.. GASTROINTESTINAL: No abdominal pain. No nausea or vomiting. No diarrhea or constipation. No hematemesis. No hematochezia. GENITOURINARY: No urgency. No frequency. No dysuria. No hematuria. No obstructive symptoms. No discharge. No pain. No significant abnormal bleeding. MUSCULOSKELETAL: No musculoskeletal pain; no joint swelling. NEUROLOGICAL: Awake, alert, oriented to time, place and person. No headache. No neck pain. No syncope. No seizures. No dizziness. PSYCHIATRIC: Anxious. No depression. No suicidal thoughts. No homicidal thoughts. SKIN: No rash. No lesions. No wounds. ENDOCRINE: No unexplained weight loss. No weight gain. HEMATOLOGIC/LYMPHATIC: No anemia. No purpura. No petechiae. No prolonged or excessive bleeding. No palpable lymph nodes. PHYSICAL EXAMINATION: GENERAL: The patient is awake, alert and oriented, lying in bed in no distress. VITAL SIGNS: Temperature 98.1 F, Pulse 69, Respiratory Rate 18, BP 120/63, Pulse Ox 95% HEENT: Head normocephalic, atraumatic. Eyes: Extraocular muscles are intact. Pupils are equal, round and reactive to light and accommodation. Ears: No lesions. Nose appeared normal. Throat: No exudate or erythema. NECK: Supple. No JVD, no carotid bruit. No lymphadenopathy or thyromegaly. LUNGS: Diminished breath sounds. Clear to auscultation. Percussion note normal. Chest symmetrical. HEART: Regular heart rate. S1, S2, no S3. No murmurs. No cyanosis or clubbing. No ascites. Pulses: Dorsalis pedis and posterior tibial pulses +1 to +2 both sides. ABDOMEN: Soft. Non-tender. Bowel sounds active. No CVA tenderness. No mass felt. EXTREMITIES: No edema. Full range of motion of all extremities, equal. NEUROLOGIC: No focal deficit. Cranial nerves II through XII are grossly intact. No headache. No double vision. SKIN: Not dry. Intact. Turgor-normal. LYMPHATIC: No palpable lymph nodes/no lymphedema. MUSCULOSKELETAL: Normal joints with no swelling. Muscle tone is normal. LAB REVIEW: 11/19/20 05:18 11/19/20 05:18 11/19/20 05:18: Sodium 138.5, Potassium 4.40, Chloride 108.2 H, Carbon Dioxide 24.3, Anion Gap 10.40, BUN 14.8, Creatinine 0.73, Estimated GFR (MDRD) 76.00, BUN/Creatinine Ratio 20.27, Glucose 103.2, Calcium 8.95, Total Bilirubin 0.59, AST 16.6, ALT 10.0, Alkaline Phosphatase 57.0, Total Protein 6.62, Albumin 3.58, Globulin 3.04, Albumin/Globulin Ratio 1.17 11/19/20 05:18: WBC 7.09, RBC 4.12 L, Hgb 13.0, Hct 39.3, MCV 95.4, MCH 31.6 H, MCHC 33.1, RDW Coeff of Jonel 12.9, Plt Count 274, Immature Gran % (Auto) 0.3, Neut % (Auto) 69.8, Lymph % (Auto) 18.9, Merrick % (Auto) 8.9, Eos % (Auto) 1.8, Baso % (Auto) 0.3, Neut # (Auto) 5.0, Lymph # (Auto) 1.3, Merrick # (Auto) 0.6, Eos # (Auto) 0.1, Baso # (Auto) 0.0, Immature Gran # (Auto) 0.0 11/18/20 09:15: Urine Color Yellow, Urine Clarity Clear, Urine pH 5.0, Ur Specific Bradford 1.015, Urine Protein Negative, Urine Glucose (UA) Negative, Urine Ketones Negative, Urine Blood Negative, Urine Nitrite Negative, Urine Bilirubin Negative, Urine Urobilinogen 0.2, Ur Leukocyte Esterase Negative ASSESSMENT: Please see below. 1. Palpitations 2. Anxiety 3. Possible medical induced hyperthyroidism. PLAN: 1. D2 echo 2. Discharge home 3. Decrease Synthroid to 50mg Plan and coordination of the patient's care discussed in the presence of Basketball Player and nurse. SCRIBED BY: Michelet MENDEZ scribed while in presence of service performed by Dr. Milner/Fernanda Singh APRN on 11/19/20 ([id number])
[2020-11-19] MEDS: K-DUR PO SCH (09:19)
[2020-11-19] MEDS: ASPIRIN EC PO SCH (09:20)
[2020-11-19] MEDS: MIRALAX PO SCH (09:20)
[2020-11-19] MEDS ORDERED: MODERNA COVID-19 VACCINE (EUA) IM ONE (12:11)
--- NOTE | 2020-11-19 12:46 | CM.DICTOOL ---
ADMISSION: 11/17/20 12:48 DISCHARGE: NOVEMBER 19, 2020 DATE OF SERVICE: 11/19/20 FINAL DIAGNOSIS PALPITATIONS ANXIETY MEDICATION INDUCED HYPERTHYROIDISM COPD PAROXYSMAL ATRIAL FIB GENERALIZED ANXIETY DISORDER RESTLESS LEG SYNDROME HYPOTHYROIDISM HYPERGLYCEMIA NEUROPATHY DYSLIPIDEMIA OSTEOARTHRITIS DDD, SPINE CATARACT EXTRACTION, 1970'S RIGHT SHOULDER SURGERY HOLTER: 08/2020 BASIC RHYTHM: SINUS; RARE PAC'S AND PVC'S ECHOCARDIOGRAM: COMPLETED 11/19/2020 LAST VITALS Temp Pulse Resp BP Pulse Ox 98.1 F 68 18 120/63 94 L 11/19/20 05:31 11/19/20 08:00 11/19/20 05:31 11/19/20 05:31 11/19/20 10:00 TAKE THESE MEDICATIONS AT HOME Alprazolam (Alprazolam 0.5 Mg Tablet) 0.5 mg PO DAILY PRN PRN Reason: Anxiety Last Admin: 11/19/20 08:55 Dose: 0.5 mg Documented by: Aspirin (Aspirin 81 Mg Tablet.) 81 mg PO DAILY DIO Last Admin: 11/19/20 09:20 Dose: 81 mg Documented by: Levothyroxine Sodium (Levothyroxine Sodium 50 Mcg Tablet) 50 mcg PO QDAC DIO Magnesium Hydroxide (Magnesium Hydroxide 30 Ml Cup) 30 ml PO DAILY PRN PRN Reason: Constipation Last Admin: 11/18/20 18:10 Dose: 30 ml Documented by: Atorvastatin 20 mg PO DAILY Last Admin: ALLERGIES moxifloxacin [From Avelox] Adverse Reaction (Verified 11/17/20 09:02) DISCONTINUED MEDICATIONS Levothyroxine Sodium 75 mcg PO QDAC [facility] NEW PRESCRIPTIONS: NO PRESCRIPTIONS GIVEN (PATIENT REPORTS HAS LEVOTHYROXINE 50 MCG TABLETS AT HOME) SMOKING: NOT APPLICABLE DISEASE SPECIFIC EDUCATION: PALPITATIONS NEW SYNTHROID DOSE ACTIVITY LAB REVIEW: 11/19/20 05:18 11/19/20 05:18 11/19/20 05:18: Sodium 138.5, Potassium 4.40, Chloride 108.2 H, Carbon Dioxide 24.3, Anion Gap 10.40, BUN 14.8, Creatinine 0.73, Estimated GFR (MDRD) 76.00, BUN/Creatinine Ratio 20.27, Glucose 103.2, Calcium 8.95, Total Bilirubin 0.59, AST 16.6, ALT 10.0, Alkaline Phosphatase 57.0, Total Protein 6.62, Albumin 3.58, Globulin 3.04, Albumin/Globulin Ratio 1.17 11/19/20 05:18: WBC 7.09, RBC 4.12 L, Hgb 13.0, Hct 39.3, MCV 95.4, MCH 31.6 H, MCHC 33.1, RDW Coeff of Jonel 12.9, Plt Count 274, Immature Gran % (Auto) 0.3, Neut % (Auto) 69.8, Lymph % (Auto) 18.9, Rhea % (Auto) 8.9, Eos % (Auto) 1.8, Baso % (Auto) 0.3, Neut # (Auto) 5.0, Lymph # (Auto) 1.3, Rhea # (Auto) 0.6, Eos # (Auto) 0.1, Baso # (Auto) 0.0, Immature Gran # (Auto) 0.0 11/19/20 05:13: Free T4 1.38 PLAN: DISCHARGE HOME DIET: HEART HEALTHY, LIMIT CAFFEINE ACTIVITY: GRADUALLY RESUME TOLERATED REST WHEN TIRED AN APPOINTMENT IS SCHEDULED WITH DR. MILNER/SILVIANO HASSAN APRN ON November AT 10 AM CODE STATUS: FULL CODE MS. NOYOLA IS ALERT AND ORIENTED X 4. PLANS FOR DISCHARGE WERE DISCUSSED THIS MORNING. MS. NOYOLA IS AGREEABLE. SHE IS INDEPENDENT WITH ACTIVITIES OF DAILY LIVING. SHE LIVES ALONE AND IS ACTIVE IN/ OUTSIDE THE HOME. SHE IS AMBULATORY IN THE ROOM WITHOUT STAFF ASSISTANCE OR USE OF ASSISTIVE DEVICE. SHE IS CONTINENT OF BOWEL AND BLADDER. MEAL INTAKES HAVE BEEN GOOD AT 25-75% UNTIL THIS MORNING. SHE DID NOT EAT BREAKFAST TODAY DUE TO NAUSEA AND GASSY FEELING. LAST BOWEL MOVEMENT ON THE . NO EMESIS WAS REPORTED BY THE PATIENT. HYDRATION STATUS IS GOOD. SKIN IS INTACT AND FREE OF OPEN WOUNDS. MD SILVIANO MACIAS APRN
[2020-11-20] MEDS ORDERED: SYNTHROID PO SCH ×2 (06:30)
--- NOTE | 2020-11-20 07:04 | ECHO2D ---
Date of Exam: 11/19/2020 Ordering Physician: DR. MILNER Room #: 105 Reason for Echo: PALPITATIONS, HISTORY OF PAROXYSMAL ATRIAL FIBRILLATION M-Mode Normal Adult Results LV Dimensions Normal Adult Results AoV Opening excursions >1.6 >1.6 LVEDD-base- 3.5-5.8 3.6 Ao root dimensions 2.0-3.7 3.0 LVESD-base- 3.1-4.6 L. Atrium dimensions 1.9-3.8 3.9 Post. Wall thickness 0.8-1.1 1.0 IV septum (thickness) 0.7-1.2 1.0 Post. Wall excursion 0.72-1.3 NORMAL Septal motion NORMAL Systolic motion R. Ventricular cavity 1.5-2.0 NORMAL LVEF 60% 74% Paradoxical septal wall motion NORMAL 2-D : 2-D M Mode Echocardiogram was performed using apical four chamber and left parasternal long and short axis views. Mitral, tricuspid and aortic valves appear to be normal. Contractility of the left ventricle seems to be normal, so is the cavity size. Left atrial cavity size and aortic root appear to be normal. There is no pericardial effusion. There is no thrombus noted in the left ventricle or left atrial cavity. No mitral valve prolapse noted. M-MODE: MV: NORMAL AV: NORMAL TV: NORMAL PV: NORMAL CHAMBER SIZE: NORMAL WALL MOTION: NORMAL PERICARDIUM: NORMAL INTERPRETATION: 1. NORMAL 2 'D' ' M' MODE ECHOCARDIOGRAM [facility]
--- NOTE | 2020-11-20 08:35 | PN ---
DATE OF SERVICE: 11/18/20 SUBJECTIVE: 85-year-old white female hospitalized with palpitations. The patient so far is in sinus rhythm. No arrhythmias noted. The patient also has cardiac workup negative with negative cardiac markers and enzymes. REVIEW OF SYSTEMS: CONSTITUTIONAL: No night sweats. No fatigue, malaise, lethargy. No fever or chills. HEENT: Eyes: No visual changes. No eye pain. No eye discharge. ENT: No runny nose. No epistaxis. No sinus pain. No sore throat. No odynophagia. No congestion. RESPIRATORY: No cough, no congestion. No hemoptysis. No shortness of breath. CARDIOVASCULAR: No angina symptoms. No CHF symptoms. No atypical chest pain for CAD. No palpitations. No PND. No orthopnea. GASTROINTESTINAL: No abdominal pain. No nausea or vomiting. No diarrhea or constipation. No hematemesis. No hematochezia. GENITOURINARY: No urgency. No frequency. No dysuria. No hematuria. No obstructive symptoms. No discharge. No pain. No significant abnormal bleeding. MUSCULOSKELETAL: No musculoskeletal pain; no joint swelling. NEUROLOGICAL: No headache. No neck pain. No syncope. No seizures. No dizziness. PSYCHIATRIC: Not anxious. No depression. No suicidal thoughts. No homicidal thoughts. SKIN: No rash. No lesions. No wounds. ENDOCRINE: No unexplained weight loss. No weight gain. HEMATOLOGIC/LYMPHATIC: No anemia. No purpura. No petechiae. No prolonged or excessive bleeding. No palpable lymph nodes. PHYSICAL EXAMINATION: VITAL SIGNS: Temperature 97.9, pulse 57, respiratory rate 16, blood pressure 108/58, pulse ox 96%. HEENT: Head normocephalic, atraumatic. Eyes: Extraocular muscles are intact. Pupils are equal, round and reactive to light and accommodation. Ears: No lesions. Nose appeared normal. Throat: No exudate or erythema. NECK: Supple. No JVD, no carotid bruit. No lymphadenopathy or thyromegaly. LUNGS: Clear to auscultation. Percussion note normal. Chest symmetrical. HEART: S1, S2, no S3. No murmurs. No cyanosis or clubbing. No ascites. Pulses: Dorsalis pedis and posterior tibial pulses +1 to +2 bilaterally. ABDOMEN: Soft. Nontender. Bowel sounds active. No CVA tenderness. No mass felt. EXTREMITIES: No edema. Full range of motion of all extremities, equal. NEUROLOGIC: No focal deficit. Cranial nerves II through XII are grossly intact. No headache. No double vision. SKIN: Not dry. Intact. Turgor - normal. LYMPHATIC: No palpable lymph nodes/no lymphedema. MUSCULOSKELETAL: Normal joints with no swelling. Muscle tone is normal. LABS: Hemoglobin 11.6, hematocrit 34, WBC 7,000, normal differential. Creatinine 0.6, BUN 17, potassium 3.4. ASSESSMENT: 1. Palpitation. So far, no evidence of any tachy arrhythmias of any kind. 2. The patient has a history of atrial fibrillation, use to be Eliquis, was started on Amiodarone in the emergency room. The patient had stopped taking Amiodarone at home. She was without any medication. Will discontinue Amiodarone. Will continue to monitor the patient's rhythm. 3. Hypokalemia. The patient has borderline hypokalemia. Will give her K-dur 20 mEq twice a day. PLAN: 1. Discharge the patient home tomorrow. 2. Monitor. 3. The patient has Covid vaccine due tomorrow. 4. The patient will be started on Baby Aspirin 81 mg p.o. daily. 5. She will resume all of her medications when she goes back home. 6. The patient is going to take her Eliquis according to her. She had already stopped it. She is not going to take her Amiodarone either as that made her feel very sick. CONDITION: Stable. TIME SPENT: More than 30 minutes. Plan and coordination of the patient's care discussed in the presence of nurse. PADMA
--- NOTE | 2020-11-20 14:46 | PN ---
DATE OF SERVICE: 11/19/20 SUBJECTIVE: The patient was seen and examined today. Her echo was examined today with the nurse practitioner. The patient's echo showed normal LV contractility, borderline LA size. There needs to be a correction that this patient was never seen in [place]. The patient had atrial fibrillation paroxysmal and was recommended Eliquis. She declined. I put her on Amiodarone and she has declined that and she was not taking that. The patient has been on potassium supplements. Palpitation is more or less under control now. The patient is strongly advised to cut down on coffee, caffeine, doesn't want any form of the treatment at the present time. Her main problem is she is very anxious. CONDITION: Otherwise stable. TIME SPENT: More than 30 minutes. Plan and coordination of the patient's care discussed in the presence of nurse. PADMA
--- NOTE | 2020-11-20 14:49 | PN ---
BILLING 11/17/20 ADMISSION DAY LEVEL 5 11/18/20 INTERMEDIATE 11/19/20 D IN DISCHARGE MTDD
--- NOTE | 2020-11-23 13:57 | HP ---
DATE OF SERVICE: 11/17/2020 REASON FOR HOSPITALIZATION/HISTORY OF PRESENT ILLNESS: 85 year old white female who presented to the emergency room with palpitations. She said that she started to feel like her heart was beating rapidly and had some skipped beats. She denies shortness of breath or chest pain. She has a history of past arrhythmia. PAST MEDICAL HISTORY: Recurrent UTI Left elbow bursitis Low back pain Restless leg syndrome COPD Anxiety Osteoarthritis Hypothyroidism Hypoglycemia Neuropathy Dyslipidemia History of paroxysmal atrial fibrillation, had Holter Monitor in August of 2020 due to palpitations. Please note that she had one episode of atrial fibrillation in 2019. She had atrial fibrillation with RVR with a blood pressure of 200/110. [place] like she was going to pass out. This occurred while driving. She presented to our office. She was admitted and stayed in the hospital for two days and no more atrial fibrillation after the first hour. PAST SURGICAL HISTORY: Right shoulder REVIEW OF SYSTEMS: CONSTITUTIONAL: No night sweats. No fatigue, malaise, lethargy. No fever or chills. HEENT: Eyes: No visual changes. No eye pain. No eye discharge. ENT: No runny nose. No epistaxis. No sinus pain. No sore throat. No odynophagia. No ear pain. No congestion. RESPIRATORY: No cough, no congestion. No hemoptysis. No shortness of breath. CARDIOVASCULAR: No angina symptoms. No CHF symptoms. No atypical chest pain for CAD. Palpitations. No PND. No orthopnea. GASTROINTESTINAL: No abdominal pain. No nausea or vomiting. No diarrhea or constipation. No hematemesis. No hematochezia. GENITOURINARY: No urgency. No frequency. No dysuria. No hematuria. No obstructive symptoms. No discharge. No pain. No significant abnormal bleeding. MUSCULOSKELETAL: No musculoskeletal pain. No joint swelling. No arthritis. NEUROLOGICAL: No headache. No neck pain. No syncope. No seizures. No dizziness. PSYCHIATRIC: Not anxious. No depression. No suicidal thoughts. No homicidal thoughts. SKIN: No rash. No lesions. No wounds. ENDOCRINE: No unexplained weight loss. No weight gain. HEMATOLOGIC/LYMPHATIC: No anemia. No purpura. No petechiae. No prolonged or excessive bleeding. No palpable lymph nodes. PERSONAL/FAMILY/SOCIAL HISTORY: She , retired and has three children. She is a nonsmoker, no alcohol or illicit drug use. MEDICATIONS: Synthroid 75mcg PO QDAC Milk of Magnesia 30ml PO daily PRN Aspirin 81mg PO daily Alprazolam 0.5mg PO daily PRN Atorvastatin 20mg PO daily ALLERGIES: Moxifloxacin PHYSICAL EXAMINATION: GENERAL: The patient is alert and oriented. HEENT: Head normocephalic, atraumatic. Eyes: Extraocular muscles are intact. Pupils are equal, round and reactive to light and accommodation. Ears: No lesions. Nose appeared normal. Throat: No exudate or erythema. NECK: Supple. No JVD, no carotid bruit. No lymphadenopathy or thyromegaly. LUNGS: Diminished breath sounds. Clear to auscultation. Percussion note normal. Chest symmetrical. HEART: Regular heart rate. S1, S2, no S3. No murmur. No cyanosis or clubbing. No ascites. Pulses: Dorsalis pedis and posterior tibial pulses +1 to +2 bilaterally. ABDOMEN: Soft. Nontender. Bowel sounds active. No CVA tenderness. No mass felt. EXTREMITIES: No edema. Full range of motion of all extremities, equal. NEUROLOGIC: No focal deficit. Cranial nerves II through XII are grossly intact. No headache, no double vision or headache. SKIN: Not dry. Intact. Turgor - normal. LYMPHATIC: No palpable lymph nodes/no lymphedema. MUSCULOSKELETAL: Normal joints with no swelling. Muscle tone is normal. LABS: WBC 7.26, hgb 13.4, hct 40, plt count 282, sodium 139, potassium 4, BUN 15, creatinine 0.6, glucose 85, TSH 0.119, Troponin less than 0.012, chest x-ray is normal, U/A normal. ASSESSMENT: 1. Palpitation 2. History of one episode of paroxysmal atrial fibrillation two years ago which resolved. 3. Anxiety 4. Dyslipidemia PLAN: 1. We will admit 2. Routine telemetry orders 3. CBC and CMP daily 4. T4 5. Regular diet 6. Continue all home medications 7. 2D echo We will follow closely. TIME SPENT: More than 70 minutes. MTDD
--- NOTE | 2020-11-23 14:45 | DS ---
DATE OF SERVICE: 11/19/2020 FINAL DIAGNOSIS: PALPITATIONS ANXIETY MEDICATION INDUCED HYPERTHYROIDISM COPD PAROXYSMAL ATRIAL FIB GENERALIZED ANXIETY DISORDER RESTLESS LEG SYNDROME HYPOTHYROIDISM HYPERGLYCEMIA NEUROPATHY DYSLIPIDEMIA OSTEOARTHRITIS DDD, SPINE CATARACT EXTRACTION, 1970'S RIGHT SHOULDER SURGERY HOLTER: 08/2020 BASIC RHYTHM: SINUS; RARE PAC'S AND PVC'S ECHOCARDIOGRAM: COMPLETED 11/19/2020 LAST VITALS: Temp Pulse Resp BP Pulse Ox 98.1 F 68 18 120/63 94 L 11/19/20 05:31 11/19/20 08:00 11/19/20 05:31 11/19/20 05:31 11/19/20 10:00 TAKE THESE MEDICATIONS AT HOME: Alprazolam (Alprazolam 0.5 Mg Tablet) 0.5 mg PO DAILY PRN PRN Reason: Anxiety Last Admin: 11/19/20 08:55 Dose: 0.5 mg Documented by: Aspirin (Aspirin 81 Mg Tablet.) 81 mg PO DAILY DIO Last Admin: 11/19/20 09:20 Dose: 81 mg Documented by: Levothyroxine Sodium (Levothyroxine Sodium 50 Mcg Tablet) 50 mcg PO QDAC DIO Magnesium Hydroxide (Magnesium Hydroxide 30 Ml Cup) 30 ml PO DAILY PRN PRN Reason: Constipation Last Admin: 11/18/20 18:10 Dose: 30 ml Documented by: Atorvastatin 20 mg PO DAILY Last Admin: ALLERGIES: moxifloxacin [From Avelox] Adverse Reaction (Verified 11/17/20 09:02) DISCONTINUED MEDICATIONS: Levothyroxine Sodium 75 mcg PO QDAC DIO NEW PRESCRIPTIONS: NO PRESCRIPTIONS GIVEN (PATIENT REPORTS HAS LEVOTHYROXINE 50 MCG TABLETS AT HOME) SMOKING: NOT APPLICABLE DISEASE SPECIFIC EDUCATION: PALPITATIONS NEW SYNTHROID DOSE ACTIVITY LAB REVIEW: 11/19/20 05:18 11/19/20 05:18 11/19/20 05:18: Sodium 138.5, Potassium 4.40, Chloride 108.2 H, Carbon Dioxide 24.3, Anion Gap 10.40, BUN 14.8, Creatinine 0.73, Estimated GFR (MDRD) 76.00, BUN/Creatinine Ratio 20.27, Glucose 103.2, Calcium 8.95, Total Bilirubin 0.59, AST 16.6, ALT 10.0, Alkaline Phosphatase 57.0, Total Protein 6.62, Albumin 3.58, Globulin 3.04, Albumin/Globulin Ratio 1.17 11/19/20 05:18: WBC 7.09, RBC 4.12 L, Hgb 13.0, Hct 39.3, MCV 95.4, MCH 31.6 H, MCHC 33.1, RDW Coeff of Jonel 12.9, Plt Count 274, Immature Gran % (Auto) 0.3, Neut % (Auto) 69.8, Lymph % (Auto) 18.9, [place] % (Auto) 8.9, Eos % (Auto) 1.8, Baso % (Auto) 0.3, Neut # (Auto) 5.0, Lymph # (Auto) 1.3, [place] # (Auto) 0.6, Eos # (Auto) 0.1, Baso # (Auto) 0.0, Immature Gran # (Auto) 0.0 11/19/20 05:13: Free T4 1.38 DISCHARGE INSTRUCTIONS: DISCHARGE HOME. AN APPOINTMENT IS SCHEDULED WITH DR. MILNER/SILVIANO HASSAN APRN ON November AT 10 AM. CODE STATUS: FULL CODE DIET: HEART HEALTHY, LIMIT CAFFEINE ACTIVITY: GRADUALLY RESUME TOLERATED REST WHEN TIRED HOSPITAL COURSE: 85 year old white female who was admitted through the emergency room with palpitations. She did have a past history of one episode of atrial fibrillation with RVR. During her hospital stay EKG was normal, telemetry remained normal. She remained in sinus rhythm. She did have a slightly decreased TSH are 0.119. We did decrease her Synthroid from 75mcg to 50. T4 was at the high end of normal. Dr. Milner performed an echo which also was within normal limits. She is a very anxious person. She did have some bouts of anxiety when she would get up and move around and thought she was having palpitations but again telemetry remained normal. I do believe a lot of this is anxiety. We will decrease her Synthroid. She will be discharged in stable condition. It is to be noted that she did have a Holter in August of 2020 which was normal. She has a prescription for Xanax at home. She will go home in stable condition and followup with us in the office next week. TIME SPENT: More than 60 minutes. [facility]
== END 2020-11-19 13:40 | disposition home or self-care (01) | DRG 880 ==
LOC: ED 08:24 → MEDSURG A 08:24 → OBSVTOIN 12:48 → MEDSURG A 13:34
PROVIDERS: ADMIT Internal Medicine; ATTEND Internal Medicine
DX: R42 Dizziness and giddiness; G25.81 Restless legs syndrome; G62.9 Polyneuropathy, unspecified; R07.9 Chest pain, unspecified; R53.1 Weakness; R06.02 Shortness of breath; Z20.822 Contact with and (suspected) exposure to COVID-19; I48.0 Paroxysmal atrial fibrillation; E78.5 Hyperlipidemia, unspecified; J44.9 Chronic obstructive pulmonary disease, unspecified; R73.9 Hyperglycemia, unspecified; M19.90 Unspecified osteoarthritis, unspecified site; F41.1 Generalized anxiety disorder; E03.9 Hypothyroidism, unspecified; R11.0 Nausea